=== PATIENT | male | born 1960 | race Caucasian/White ===

== ENCOUNTER 2017-07-26 13:30 | Inpatient (IN) | payer BC ==
[~2017-07-26] VITALS: Ht 180.3 cm; Wt 112.2 kg
[2017-09-06] MEDS ORDERED: TAMS5CAP PO (11:02)
[2017-09-06] MEDS ORDERED: VITA100021 SL (11:02)
[2017-09-06] MEDS ORDERED: CHLORHEXIDINE GLUCONATE 2 % 1 PACK (2 CLOTHS) TOPICAL PRN (11:15)
[2017-09-06] MEDS ORDERED: ACETAMINOPHEN 1000 MG/100 ML 100 ML IV SCH (11:15)
[2017-09-06] MEDS ORDERED: LACTATED RINGER'S 1000 ML IV PRN (11:15)
[2017-09-06] MEDS ORDERED: metroNIDAZOLE 500 MG INJ 100 ML IV SCH (11:15)
[2017-09-06] MEDS ORDERED: POVIDONE IODINE 5% (ANTISEPSIS KIT) 4 APPLICATIONS EACH NARE PRN (11:15)
[2017-09-06] MEDS ORDERED: ALVIMOPAN 12 MG CAPSULE - On Call PO SCH (11:15)
[2017-09-06] MEDS ORDERED: METOPROLOL TARTRATE 25 MG TAB PO PRN (11:15)
[2017-09-06] MEDS ORDERED: SODIUM CHLORID 0.9% 500 ML IV PRN (11:15)
[2017-09-06] MEDS ORDERED: ceFAZolin 2 GM PREMIX 50 ML IV SCH (11:15)
[2017-09-06] MEDS ORDERED: DEXAMETHASONE SOD PHOS 4 MG/ML VIAL IV ONE (12:00)
[2017-09-06] MEDS ORDERED: SODIUM CHLORID 0.9% 500 ML INJ 500 ML IV ONE (12:00)
[2017-09-06] MEDS ORDERED: LACTATED RINGER'S 1000 ML INJ 2,000 ML IV ONE (12:00)
[2017-09-06] MEDS ORDERED: MORPHINE SULFATE 4 MG/ML INJ IV ONE (12:00)
[2017-09-06] MEDS ORDERED: NORMOSOL R INJ 2,000 ML IV ONE (12:00)
[2017-09-06] MEDS ORDERED: VECURONIUM BROMIDE 20 MG VIAL IV ONE ×2 (12:00)
[2017-09-06] MEDS ORDERED: LIDOCAINE HCL 1% PF 5 ML SYRINGE OTHER ONE (12:00)
[2017-09-06] MEDS ORDERED: ceFAZolin INJ 1,000 MG VIAL IV ONE (12:00)
[2017-09-06] MEDS ORDERED: MIDAZOLAM HCL 2 MG/2 ML VIAL IV ONE (12:00)
[2017-09-06] MEDS ORDERED: STERILE WATER FOR INJECTION 20 ML VIAL IV ONE ×2 (12:00)
[2017-09-06] MEDS ORDERED: ROCURONIUM INJ 50 MG/5 ML SYRINGE IV PUSH ONE (12:00)
[2017-09-06] MEDS ORDERED: PROPOFOL 200 MG/20 ML AMP IV ONE (12:00)
[2017-09-06] MEDS ORDERED: ACETAMINOPHEN 1000 MG/100 ML 0 ML IV ONE (15:34)
[2017-09-06] MEDS ORDERED: SUGAMMADEX SODIUM 200 MG/2 ML VIAL IV PUSH ONE ×2 (15:35)
[2017-09-06] MEDS ORDERED: ARTIFICIAL TEARS OPTH OINT 3.5 APPLIC/3.5 GM TUBO ONE (15:35)
[2017-09-06 20:16] LABS: BLOOD GAS BASE EXCESS -0.6 mmol/L (-2-2); BLOOD GAS CARBOXYHEMOGLOBIN 0.8 % (0-4); BLOOD GAS HCO3 25 mmol/L (22-26); BLOOD GAS METHEMOGLOBIN 1.5 % (0-2); BLOOD GAS O2 HGB SATURATION 96 % (90-100); BLOOD GAS OXYGEN CONTENT 18.9 Vol % (12.0-20.0); BLOOD GAS PCO2 54 mmHg (38-42); BLOOD GAS PO2 132 mmHg (61-120); BLOOD GAS TOTAL HGB 13.9 G/DL (12.0-16.0); TEMP CORR TO 98.6
[2017-09-06 20:17] LABS: CRITICAL VALUE YES; DRAW SITE RT RADIAL; FIO2 60 %; NUMBER OF ARTERIAL PUNCTURES 1; STAT NO; ULNAR PULSE PRESENT; VENT SETTINGS OR
[2017-09-06 20:18] LABS: OXYGEN DEVICE SEE COMMENTS
[2017-09-06] MEDS ORDERED: NALOXONE HCL 0.4 MG/ML AMP IV PUSH PRN ×2 (22:15)
[2017-09-06] MEDS ORDERED: Post-op Orders (for Pharmacy) XX ONE (22:15)
[2017-09-06] MEDS: PCA - TOTAL MG DILAUDID DELIVERED PER SHIFT OTHER SCH (22:15)
[2017-09-06] MEDS ORDERED: diphenhydrAMINE HCL 50 MG/ML VIAL IV PUSH PRN (22:15)
[2017-09-06] MEDS ORDERED: SODIUM CHLORIDE 0.9% FLUSH 10 ML FLUSH IV FLUSH PRN (22:15)
[2017-09-06] MEDS ORDERED: HYDROmorphone HCL PCA 6 MG/30 ML IV SCH (22:15)
[2017-09-06] MEDS ORDERED: DO NOT ADM ANY ANTICOAGULANT DRUGS PRN (22:45)
[2017-09-06] MEDS ORDERED: ceFAZolin INJ 1,000 MG VIAL ONE (22:52)
--- NOTE | 2017-09-06 23:02 | RADRPT ---
EXAM DATE/TIME: 09/06/2017 22:14 [place] COMPARISON: No previous studies available for comparison. INDICATIONS : Evaluate for foreign body. MEDICAL HISTORY : None. SURGICAL HISTORY : None. ENCOUNTER: Initial ACUITY: 1 day PAIN SCORE: Non-responsive. LOCATION: abdomen. FINDINGS: Supine view of the abdomen was performed. The abdominal bowel gas pattern is normal. No abnormal ma sses, calcifications, or organomegaly is seen. There are multiple surgical skin frantz over the mid abdomen and upper pelvis. There is a small linear metallic structure projects over the left side of the sacrum. This measures approximately 11 x 2 mm. There is a second smaller metallic structure proje cted over the right upper sacrum measuring approximately 4 x 1 mm. The osseous structures are unremar kable. Surgical clips are present in the right upper abdomen consistent with prior cholecystectomy. CONCLUSION: 2 small linear metallic structures projected over the sacrum which could represent sm all metallic foreign bodies. This needs to be correlated with the surgical history. Erich Uribe MD on September 06, 2017 at 22:58 Board Certified Radiologist. This report was verified electronically.
[2017-09-06] MEDS ORDERED: *morphine SULFATE 8 MG/ML PERIprocedure ONLY ONE (23:52)
[2017-09-07] VITALS (7 sets, daily range): BP systolic 108–123; BP diastolic 58–62; PULSE 63–75; RESP 17–20; TEMP 95.7–98.9; O2SAT 95–97
[2017-09-07] MEDS: KETOROLAC TROMETHAMINE 30 MG/ML (IVP) VIAL IV PUSH SCH ×4 (01:00→18:19)
[2017-09-07] MEDS: LACTATED RINGER'S 1000 ML INJ 1,000 ML IV SCH (01:09)
[2017-09-07] MEDS: PCA - TOTAL MG DILAUDID DELIVERED PER SHIFT OTHER SCH ×3 (05:39→22:00)
[2017-09-07 07:24] LABS: AUTOMATED NEUTROPHIL # 12.3 TH/MM3 (1.8-7.7); HEMATOCRIT 37.5 % (39.0-51.0); HEMO FLAGS DIFF FINAL; LYMPH % 5.6 % (9.0-44.0); LYMPHOCYTE # 0.8 TH/MM3 (1.0-4.8); MEAN CELL VOLUME 85.9 FL (80.0-100.0); MEAN CORPUSCULAR HEMOGLOBIN 28.6 PG (27.0-34.0); MEAN CORPUSCULAR HGB CONC 33.3 % (32.0-36.0); MONO % 11.1 % (0.0-8.0); NEUT % 83.3 % (16.0-70.0); PLATELET COUNT 269 TH/MM3 (150-450); RED BLOOD COUNT 4.37 MIL/MM3 (4.50-5.90); RED CELL DISTRIBUTION WIDTH 13.7 % (11.6-17.2); WHITE BLOOD COUNT 14.8 TH/MM3 (4.0-11.0)
[2017-09-07 07:43] LABS: BICARBONATE 27.6 MEQ/L (21.0-32.0); POTASSIUM 4.1 MEQ/L (3.5-5.1)
[2017-09-07] MEDS: ALVIMOPAN 12 MG CAPSULE - Post-op dosing PO SCH ×2 (08:57→22:01)
[2017-09-07] MEDS: SODIUM CHLORIDE 0.9% FLUSH 10 ML FLUSH IV FLUSH SCH ×2 (08:57→21:00)
--- NOTE | 2017-09-07 13:41 | HHI.PR ---
Subjective Subjective Notes In some post op pain. No nausea. Having small amt of clears. Objective Vitals/I&O Vital Signs Date Time Temp Pulse Resp B/P (MAP) Pulse Ox O2 Delivery O2 Flow Rate FiO2 09/07/17 12:00 96.8 69 20 117/58 (77) 97 09/07/17 08:42 Nasal Cannula 2.00 Labs Laboratory Tests Test 09/06/17 20:03 09/07/17 06:35 Blood Gas Puncture Site RT RADIAL Blood Gas Patient Temperature 98.6 Blood Gas HCO3 25 Blood Gas Base Excess -0.6 Blood Gas Oxygen Saturation 96 Arterial Blood pH 7.29 Arterial Blood Partial Pressure CO2 54 Arterial Blood Partial Pressure O2 132 Arterial Blood Oxygen Content 18.9 Arterial Blood Carboxyhemoglobin 0.8 Arterial Blood Methemoglobin 1.5 Blood Gas Hemoglobin 13.9 Oxygen Delivery Device SEE COMMENTS Blood Gas Ventilator Setting OR Blood Gas Inspired Oxygen 60 White Blood Count 14.8 Red Blood Count 4.37 Hemoglobin 12.5 Hematocrit 37.5 Mean Corpuscular Volume 85.9 Mean Corpuscular Hemoglobin 28.6 Mean Corpuscular Hemoglobin Concent 33.3 Red Cell Distribution Width 13.7 Platelet Count 269 Mean Platelet Volume 9.0 Neutrophils (%) (Auto) 83.3 Lymphocytes (%) (Auto) 5.6 Monocytes (%) (Auto) 11.1 Eosinophils (%) (Auto) 0.0 Basophils (%) (Auto) 0.0 Neutrophils # (Auto) 12.3 Lymphocytes # (Auto) 0.8 Monocytes # (Auto) 1.6 Eosinophils # (Auto) 0.0 Basophils # (Auto) 0.0 CBC Comment DIFF FINAL Differential Comment Blood Urea Nitrogen 12 Creatinine 0.92 Random Glucose 118 Calcium Level 8.2 Sodium Level 139 Potassium Level 4.1 Chloride Level 104 Carbon Dioxide Level 27.6 Anion Gap 7 Estimat Glomerular Filtration Rate 85 Narrative Exam NAD Nonlabored breathing Abd: binder in place, dressing intact. Venegas with teja urine A/P Assessment and Plan 56 yo M POD 1 extended right colectomy for hepatic flexure and transverse colon polyps. 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 Plan d/c venegas tomorrow. DVT proph: SCDs. Jagdish. Roderick,Trung SULLIVAN Sep 07, 2017 13:41
[2017-09-07] MEDS: ENOXAPARIN SODIUM 40 MG/0.4 ML SYRINGE SQ SCH (22:03)
[2017-09-08] VITALS (8 sets, daily range): BP systolic 102–145; BP diastolic 58–71; PULSE 53–69; RESP 18–21; TEMP 96–98.2; O2SAT 93–98
[2017-09-08] MEDS: ACETAMINOPHEN 1000 MG/100 ML 100 ML IV SCH ×2 (00:59→05:49)
[2017-09-08] MEDS: PANTOPRAZOLE SODIUM 40 MG VIAL IV PUSH SCH (00:59)
[2017-09-08] MEDS: KETOROLAC TROMETHAMINE 30 MG/ML (IVP) VIAL IV PUSH SCH ×4 (00:59→17:52)
[2017-09-08] MEDS: PCA - TOTAL MG DILAUDID DELIVERED PER SHIFT OTHER SCH ×3 (05:08→22:00)
[2017-09-08] MEDS: LACTATED RINGER'S 1000 ML INJ 1,000 ML IV SCH (05:49)
[2017-09-08] MEDS: SODIUM CHLORIDE 0.9% FLUSH 10 ML FLUSH IV FLUSH SCH ×2 (07:52→21:00)
[2017-09-08] MEDS: ALVIMOPAN 12 MG CAPSULE - Post-op dosing PO SCH ×2 (07:52→22:57)
--- NOTE | 2017-09-08 11:52 | HHI.PR ---
Subjective Subjective Notes Doing well. Still in pain but improving. Tolerating clears. Objective Vitals/I&O Vital Signs Date Time Temp Pulse Resp B/P (MAP) Pulse Ox O2 Delivery O2 Flow Rate FiO2 09/08/17 08:00 96.0 53 19 108/58 (75) 95 09/07/17 20:07 Nasal Cannula 2.00 Narrative Exam NAD Nonlabored breathing Abd: binder in place, incision with some hematoma present. Dressing changed. Venegas with teja urine A/P Assessment and Plan 56 yo M POD 2 extended right colectomy for hepatic flexure and transverse colon polyps. 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 Add percocet. Fulls d/c venegas DVT proph: SCDs. Lovenox. Ambulate. Trung Vaughn MD Sep 08, 2017 11:52
[2017-09-08] MEDS ORDERED: oxyCODONE/ACETAMINOPHEN 5 MG/325 MG TAB PO PRN ×2 (12:00)
[2017-09-08] MEDS: ENOXAPARIN SODIUM 40 MG/0.4 ML SYRINGE SQ SCH (22:57)
[2017-09-09 00:08] VITALS: BP 115/61; PULSE 64; RESP 20; TEMP 97.1; O2SAT 94
[2017-09-09] MEDS: PANTOPRAZOLE SODIUM 40 MG VIAL IV PUSH SCH (00:30)
[2017-09-09] MEDS: KETOROLAC TROMETHAMINE 30 MG/ML (IVP) VIAL IV PUSH SCH ×4 (00:31→17:18)
[2017-09-09 04:00] VITALS: BP 116/67; PULSE 65; RESP 18; TEMP 97.5; O2SAT 94
[2017-09-09] MEDS: PCA - TOTAL MG DILAUDID DELIVERED PER SHIFT OTHER SCH ×3 (05:45→21:23)
[2017-09-09 08:00] VITALS: BP 122/64; PULSE 69; RESP 20; TEMP 96.3; O2SAT 93
[2017-09-09] MEDS: SODIUM CHLORIDE 0.9% FLUSH 10 ML FLUSH IV FLUSH SCH ×2 (09:00→21:00)
[2017-09-09] MEDS: ALVIMOPAN 12 MG CAPSULE - Post-op dosing PO SCH ×2 (09:52→21:22)
[2017-09-09] MEDS: ONDANSETRON HCL 4 MG/2 ML VIAL IV PUSH PRN (09:52)
--- NOTE | 2017-09-09 10:05 | HHI.PR ---
Subjective Subjective Notes He had a difficult night. C/o headache and nausea. Had some oozing from the incision. Objective Vitals/I&O Vital Signs Date Time Temp Pulse Resp B/P (MAP) Pulse Ox O2 Delivery O2 Flow Rate FiO2 09/09/17 08:00 96.3 69 20 122/64 (83) 93 09/07/17 20:07 Nasal Cannula 2.00 Narrative Exam NAD Nonlabored breathing Abd: binder in place, incision with some hematoma present, soft, mildly distended A/P Assessment and Plan 56 yo M POD 3 extended right colectomy for hepatic flexure and transverse colon polyps. C/o nausea, headache. Had an episode of emesis this am. 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 Add reglan. Fulls as tolerated. DVT proph: SCDs. Lovenox. Ambulate. Trung Vaughn MD Sep 09, 2017 10:05
[2017-09-09] MEDS: METOCLOPRAMIDE HCL 10 MG/2 ML VIAL IV PUSH SCH ×2 (11:08→17:19)
[2017-09-09] MEDS: ACETAMINOPHEN 1000 MG/100 ML 100 ML IV SCH ×3 (11:08→21:22)
[2017-09-09 12:00] VITALS: BP 121/56; PULSE 67; RESP 18; TEMP 97; O2SAT 94
[2017-09-09 16:00] VITALS: BP 125/66; PULSE 83; RESP 16; TEMP 98.9; O2SAT 95
[2017-09-09 20:00] VITALS: BP 110/63; PULSE 62; RESP 20; TEMP 96.2; O2SAT 95
[2017-09-09] MEDS: ENOXAPARIN SODIUM 40 MG/0.4 ML SYRINGE SQ SCH (21:23)
[2017-09-10] VITALS: BP 105/58; PULSE 75; RESP 20; TEMP 98.7; O2SAT 94
[2017-09-10] MEDS: KETOROLAC TROMETHAMINE 30 MG/ML (IVP) VIAL IV PUSH SCH ×5 (00:35→23:09)
[2017-09-10] MEDS: PANTOPRAZOLE SODIUM 40 MG VIAL IV PUSH SCH ×2 (00:35→23:51)
[2017-09-10] MEDS: METOCLOPRAMIDE HCL 10 MG/2 ML VIAL IV PUSH SCH ×2 (00:36→11:32)
[2017-09-10 03:34] VITALS: BP 123/72; PULSE 78; RESP 20; TEMP 97.7; O2SAT 94
[2017-09-10] MEDS: ACETAMINOPHEN 1000 MG/100 ML 100 ML IV SCH ×2 (04:15→11:31)
[2017-09-10] MEDS: PCA - TOTAL MG DILAUDID DELIVERED PER SHIFT OTHER SCH (06:00)
[2017-09-10 08:00] VITALS: BP 101/66; PULSE 81; RESP 19; TEMP 97.4; O2SAT 95
[2017-09-10] MEDS: SODIUM CHLORIDE 0.9% FLUSH 10 ML FLUSH IV FLUSH SCH ×2 (09:00→20:19)
[2017-09-10] MEDS: ALVIMOPAN 12 MG CAPSULE - Post-op dosing PO SCH (09:51)
[2017-09-10] MEDS: LACTATED RINGER'S 1000 ML INJ 1,000 ML IV SCH (09:52)
--- NOTE | 2017-09-10 11:57 | HHI.PR ---
Subjective Subjective Notes Requests solid food. Had multiple liquid BMs this am. Had one small episode emesis but overall not feeling nauseated. Objective Vitals/I&O Vital Signs Date Time Temp Pulse Resp B/P (MAP) Pulse Ox O2 Delivery O2 Flow Rate FiO2 09/10/17 08:00 97.4 81 19 101/66 (78) 95 09/07/17 20:07 Nasal Cannula 2.00 Narrative Exam NAD Nonlabored breathing Abd: binder in place, bandage c/d/i, mild distention, soft A/P Assessment and Plan 56 yo M POD 4 extended right colectomy for hepatic flexure and transverse colon polyps. Doing better. Multiple liquid BMs. 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 HLIV. Percocet. Soft diet. DVT proph: SCDs. Lovenox. Ambulate. Anticipate d/c home in am. Trung Vaughn MD Sep 10, 2017 11:57
[2017-09-10 12:00] VITALS: BP 129/60; PULSE 69; RESP 19; TEMP 97.3; O2SAT 97
[2017-09-10] MEDS ORDERED: MORPHINE SULFATE 2 MG/ML INJ IV PUSH PRN (12:00)
[2017-09-10] MEDS ORDERED: oxyCODONE/ACETAMINOPHEN 5 MG/325 MG TAB PO PRN ×2 (12:00)
[2017-09-10 16:00] VITALS: BP 123/71; PULSE 73; RESP 19; TEMP 98.6; O2SAT 96
[2017-09-10 20:00] VITALS: BP 139/67; PULSE 70; RESP 20; TEMP 99; O2SAT 96
[2017-09-10] MEDS: ONDANSETRON HCL 4 MG/2 ML VIAL IV PUSH PRN (20:20)
[2017-09-10] MEDS: ENOXAPARIN SODIUM 40 MG/0.4 ML SYRINGE SQ SCH (20:20)
[2017-09-11] VITALS: BP 118/67; PULSE 62; RESP 20; TEMP 98.3; O2SAT 95
[2017-09-11] MEDS: KETOROLAC TROMETHAMINE 30 MG/ML (IVP) VIAL IV PUSH SCH ×2 (06:00→12:00)
[2017-09-11 08:00] VITALS: BP 96/60; PULSE 62; RESP 17; TEMP 97.5; O2SAT 94
[2017-09-11] MEDS: SODIUM CHLORIDE 0.9% FLUSH 10 ML FLUSH IV FLUSH SCH (09:00)
[2017-09-11 12:00] VITALS: BP 130/72; PULSE 66; RESP 17; TEMP 97.3; O2SAT 95
[2017-09-11] MEDS ORDERED: OXYC1TAB63 PO (13:03)
[2017-09-11] MEDS ORDERED: ZOFR4TAB PO (13:03)
--- NOTE | 2017-09-11 13:14 | HHI.DS ---
Discharge Summary Admission Date Sep 06, 2017 at 10:09 Discharge Date: Sep 11, 2017 Admitting Diagnosis Colon polyps Brief History 56 yo M admitted for elective colon resection due to two large colon polyps found on screening colonoscopy. CBC/BMP: 09/07/17 0635 09/07/17 0635 PE at Discharge NAD Nonlabored breathing Abd: binder in place, inc c/d/i, mild distention, soft Hospital Course Mr. Brown did well post operatively. 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 Diet slowly advanced from liquids to solids. He began having multiple liquid bowel movts. Pathology revealed T1 adenocarcinoma. Pt Condition on Discharge: Good Discharge Disposition: Discharge Home Discharge Instructions DIET: Follow Instructions for: As Tolerated, No Restrictions Activities you can perform: See Additionl Instruction Other Activity Instructions: Ok to shower. Wear binder for comfort. Avoid heavy lifting. Follow up Referrals: PCP Follow-up Surgical - 09/18/17 with Trung Vaughn MD New Medications: Ondansetron (Zofran) 4 Mg Tab 4 MG PO Q6HR PRN for NAUSEA OR VOMITING, #15 TAB 0 Refills Oxycodone HCl/Acetaminophen (Oxycodone-Acetaminophen 5-325) 5 Mg-325 Mg Tablet 1-2 TAB PO Q4H PRN for PAIN, #30 TAB Continued Medications: Cyanocobalamin (Vitamin B-12) 1,000 Mcg Subl 1000 MCG SL DAILY for Nutritional Supplement, TAB.SL 0 Refills Tamsulosin (Flomax) 0.4 Mg Cap 0.4 MG PO HS for Manage Prostate Problems, #30 CAP 0 Refills Trung Vaughn MD Sep 11, 2017 13:14
--- NOTE | 2017-09-20 06:05 | MP ---
cc: MINH BARDALES MD DATE OF SURGERY 09/06/2017 PREOPERATIVE DIAGNOSIS Colon polyp of transverse colon. PROCEDURE Robotic converted to open, extended right hemicolectomy. POSTOPERATIVE DIAGNOSIS Polyp of hepatic flexure. Polyp of transverse colon. ANESTHESIA General endotracheal anesthesia. SURGEON MD Gerardo Montero MD GETTERING OPERATOR Lilibeth BRAN SPECIMENS Right colon and transverse colon with sites at hepatic flexure and transverse colon. ESTIMATED BLOOD LOSS 100 cc. OPERATIVE FINDINGS The operation was initiated using the da [place]uyita robot and the tattoo was located in the mid-transverse colon. The descending colon and the splenic flexure were mobilized in order to evaluate for the second tattoo with the polyp. After full mobilization of the transverse colon, splenic flexure and descending colon and evaluation of the sigmoid colon, there was no evident tattooing. The procedure was converted to an open operation. After opening and on further evaluation, there was noted to be tattoo site at the hepatic flexure. Therefore an extended right hemicolectomy was performed including both tattoo sites. PROCEDURE IN DETAIL The patient was taken to the operating room and placed in supine position. General endotracheal anesthesia was induced. The abdomen was prepped and draped in the usual sterile fashion and surgical time-out was performed to verify correct patient, procedure and site. Appropriate preoperative antibiotics were administered. A 12-mm incision was made near the umbilicus and the 5-mm OptiView trocar inserted under laparoscopic visualization. The abdomen was insufflated to 15 mmHg of CO2 gas which the patient tolerated well. An 8-mm robotic port was placed in the right mid-abdomen and an 8-mm robotic port in the left midabdomen. A 5-mm assistant professor of forestry port was placed in the right lower abdomen. A third robotic arm was placed. The 5-mm port near the umbilicus was changed to a 12-mm for. The patient was placed in reverse Trendelenburg position. The laparoscopic equipment was removed and the device docked with attention to the left upper abdomen. The was placed on open and the hook placed on 2. Small grasper was placed in arm #3. There was a tattoo in the mid to distal transverse colon which was quickly apparent. The descending colon was then mobilized along the white line of Toldt from the abdominal wall in search of the tattoo near the splenic flexure. The entire splenic flexure was mobilized. The descending colon was carefully inspected as well as the upper sigmoid colon. The mid and distal transverse colon was mobilized as well. This portion of the procedure was approximately 2 hours. I was unable to locate the second tattoo cherrie or mass. At this point I opted to convert to an open procedure. The da [place]uyita robot arms undocked, the robot removed from the operative field. A midline incision was then created and dissection carried through subcutaneous tissue with electrocautery. The abdomen was carefully entered. On further evaluation the second tattoo was noted at the hepatic flexure. Due to the polyp present at the hepatic flexure as well as mid-transverse colon, the patient required an extended right hemicolectomy. Therefore lateral mobilization of the terminal ileum and ascending colon was performed with electrocautery and the hepatic flexure was carefully taken down. The greater omentum was divided from the proximal and mid-transverse colon to fully mobilize the colon. A harmonic scalpel was used to take down the mesentery of the right colon. The ileocolic vessels were clamped and tied with 0 silk suture. The right colic and the right branch of the middle colic were also clamped and tied with 0 Vicryl suture. The terminal ileum was divided with the HECTOR 75-mm blue load stapler. The transverse colon was divided approximately 5 cm distal to the transverse colon tattoo cherrie with the HECTOR blue load stapler. The specimen was removed from the abdomen. An ileocolic functional end-to-end anastomosis was performed using HECTOR blue load stapler and the TX 60 to close the enterotomy. There was no tension, no bleeding from the anastomotic sites. A 3-0 silk suture was placed at the end of the staple line. The mesentery was closed with running 3-0 silk. In the distal transverse colon and the splenic flexure was evaluated and there were two areas of serosal injury which were oversewn with simple interrupted 3-0 silk suture. At this point the midline fascia was closed with running #1 looped PDS suture. The wound was irrigated and skin closed with wide skin stapler. The fascia at the 12-mm port site was closed with a 0 Vicryl suture. The patient tolerated the procedure well, was extubated and taken to PACU in stable condition. All sponge and for counts were correct. MD DIANA Cifuentes/SSB /10:19 AM /5:35 AM
== END 2017-09-11 14:39 | disposition home or self-care (01) | DRG 331 ==
LOC: HSDI 09-06 10:09 → N07B 09-07 01:51
PROVIDERS: ADMIT Surgery; ATTEND Surgery
PROC: 3E0T3BZ Introduction of Anesthetic Agent into Peripheral Nerves and Plexi, Percutaneous Approach (ICD-10-PCS; 2017-09-06)
PROC: 0DJD4ZZ Inspection of Lower Intestinal Tract, Percutaneous Endoscopic Approach (ICD-10-PCS; 2017-09-06)
PROC: 8E0W4CZ Robotic Assisted Procedure of Trunk Region, Percutaneous Endoscopic Approach (ICD-10-PCS; 2017-09-06)
PROC: 0DTF0ZZ Resection of Right Large Intestine, Open Approach (ICD-10-PCS; principal; 2017-09-06 16:20)
DX: C18.4 Malignant neoplasm of transverse colon (principal); E66.9 Obesity, unspecified; K63.5 Polyp of colon; R11.2 Nausea with vomiting, unspecified; R51 Headache; Z68.34 Body mass index [BMI] 34.0-34.9, adult; Z87.891 Personal history of nicotine dependence; Z53.31 Laparoscopic surgical procedure converted to open procedure
CPT/HCPCS: 36600; 74000; 80048; 82805; 85025; 88305; 88307; 88309; 94150; C9113; C9290; J0131; J0690; J1100; J1170; J1650; J1885; J2250; J2270; J2405; J2765; J3010; J7040; J7120